=== PATIENT | female | born 1980 | race Caucasian/White ===

== ENCOUNTER 2017-01-16 19:22 | Emergency (ER) | payer OTHER ==
[~2017-01-16] VITALS: Ht 160 cm; Wt 70.3 kg
--- NOTE | 2017-01-16 20:23 | ED GENERAL ADULT ---
History of Present Illness General Chief Complaint: General Adult Stated Complaint: "NECK PAIN, DIZZY, NUMB LEFT SIDE" Source: patient Exam Limitations: no limitations Vital Signs & Intake/Output Vital Signs & Intake/Output Vital Signs Date Time Temp Pulse Resp B/P Pulse O2 O2 Flow FiO2 Ox Delivery Rate 01/161 99.5 90 18 122/70 100 Room Air 01/17 1944 98.1 93 16 138/83 99 Room Air ED Intake and Output 01/17 0000 01/16 1200 Intake Total 0 Output Total Balance 0 Intake, Oral 0 Patient 155 lb Weight Allergies Coded Allergies: No Known Allergies (01/16/17) Triage Note: RECEIVED 36 YO C/O NECK PAIN STARTED LAST SATURDAY. SPOKE TO DR FORTUNE AND PRESCRIBED MEDS. TODAY AT 1840, PT WAS ROTATING NECK AND WHEN SHE ROTATED HEAD TO LEFT SIDE, SHE FELT A POP AND ALMOST PASSED OUT. THEN PT HAD LEFT SIDED NUMMBESS WHICH IS ALMOST RESOLVED AT PRESENT. Triage Nurses Notes Reviewed? yes Onset: Abrupt Duration: day(s): Timing: recent history : No Patient currently breastfeeds: No HPI: 01/16/17 8:20 pm 36-year-old female presents to the emergency department with neck pain and left sided facial numbness. According to the patient she was in her usual state of health until approximately one week ago when after sleeping on the couch she developed right-sided neck pain. She said that the pain is been ongoing over the last week. She called her primary care doctor today Dr. Fortune. He called in a prescription for Flexeril and prednisone for her. She took a Flexeril at approximately 2:30 PM today. Then at approximately 6 PM tonight she was stretching her neck and felt a sudden onset of severe left-sided neck pain. She also had left-sided facial paresthesias and had some blurriness in her left eye. She felt like her left eyelid was heavy. Now she has no neurological symptoms. She also felt like she was going to fall over at the time of the symptoms. The onset of the symptoms were abrupt, the duration has been ongoing for the past week, the severity is significant as her symptoms required her to come to the emergency department for care. She has no significant past medical history. No significant past surgical history. She denies any possibility of . She is on oral contraceptive pills. She has no known drug allergies. She does not smoke. She occasionally drinks. On physical exam she does have some right sided paracervical neck tenderness and some limited range of motion when turning her head to the left. Her neurological exam is completely normal. Although she does have some mild fatiguing horizontal nystagmus. Past History Travel History Traveled to [place] past 21 day No Medical History Any Pertinent Medical History? see below for history Neurological: NONE EENT: NONE Cardiovascular: NONE Respiratory: NONE Gastrointestinal: NONE Hepatic: NONE Renal: NONE Musculoskeletal: NONE Psychiatric: NONE Endocrine: NONE Blood Disorders: NONE Cancer(s): NONE Surgical History Surgical History: unobtainable Psychosocial History What is your primary language Japanese Tobacco Use: Never used Family History Hx Contributory? No Review of Systems Review of Systems Constitutional: Denies: fever. EENTM: Reports: see HPI. Respiratory: Denies: short of breath. Cardiovascular: Denies: chest pain. GI: Denies: abdominal pain. Genitourinary: Reports: no symptoms. Musculoskeletal: Reports: no symptoms. Skin: Reports: no symptoms. Neurological/Psychological: Reports: anxiety. Hematologic/Endocrine: Denies: bruising, bleeding. Physical Exam Physical Exam General Appearance: well developed/nourished, alert, awake, anxious, mild distress Head: atraumatic, normal appearance Eyes: Bilateral: normal appearance, PERRL, EOMI, other (nystagmas). Ears, Nose, Throat: normal pharynx, normal ENT inspection, hearing grossly normal Neck: normal inspection, supple, right paracervical tenderness, decreased rom Respiratory: normal breath sounds, chest non-tender, no respiratory distress Cardiovascular: regular rate/rhythm Peripheral Pulses: 4+ radial (R), 4+ radial (L) Gastrointestinal: soft, non-tender Back: normal range of motion Extremities: normal inspection, normal capillary refill, no edema Neurologic/Psych: no motor/sensory deficits, awake, alert, oriented x 3 Skin: intact, normal color, warm/dry Core Measures ACS in differential dx? No CVA/TIA Diagnosis: No Severe Sepsis Present: No Septic Shock Present: No Progress Differential Diagnoses I considered the following diagnoses in my evaluation of the patient: [Adverse drug reaction to Flexeril, cervical radiculopathy, carotid artery dissection, CVA, TIA, Lyme disease. ] Plan of Care: Orders Procedure Date/time Status TROPONIN LEVEL 01/17 2016 Complete LYME TITRE 01/17 2016 Active HUMAN BETA HCG SCREEN 01/17 2016 Complete COMPREHENSIVE METABOLIC PANEL 01/17 2016 Complete CBC WITHOUT DIFFERENTIAL 01/17 2016 Complete EKG 01/17 2016 Active Laboratory Tests 01/16/172023: Total Beta HCG Cancelled 01/16/172015: Anion Gap 12, Estimated GFR > 60, BUN/Creatinine Ratio 30.0 H, Glucose 105 H, Calcium 9.5, Total Bilirubin 0.4, AST 19, ALT 32, Alkaline Phosphatase 30, Troponin I < 0.01, Total Protein 7.4, Albumin 4.4, Globulin 3.0, Albumin/ Globulin Ratio 1.5, Total Beta HCG NEGATIVE 01/16/171931: CBC w Diff NO MAN DIFF REQ, RBC 4.86, MCV 86.3, MCH 28.9, RDW 13.3, MPV 7.4, Gran % 52.9, Lymphocytes % 32.9, Monocytes % 8.5, Eosinophils % 5.3 H, Basophils % 0.4, Absolute Granulocytes 2.5, Absolute Lymphocytes 1.6, Absolute Monocytes 0.4, Absolute Eosinophils 0.3, Absolute Basophils 0, PUBS MCHC 33.5, Lyme Disease Antibody Pending Initial ED EKG: NSR Departure Departure Disposition: HOME OR SELF CARE Condition: Stable Clinical Impression Primary Impression: Cervical radiculopathy Secondary Impressions: Adverse drug reaction Referrals: ADILIA FORTUNE MD (PCP/Family) Departure Forms: Customer Survey General Discharge Information Comments PATIENT: SONDRA DIETZ PRESENT AGE: 36 PATIENT ACCOUNT NO: [id number] : 82 LOCATION: [facility] ORDERING PHYSICIAN: SIRENA LIMA DO SERVICE DATE: 01/16/17 EXAM TYPE: CAT - CT NECK ANGIOGRAM EXAMINATION: CT ANGIOGRAM NECK CLINICAL INFORMATION: Left-sided facial weakness. Neck pain. Concern for carotid dissection. COMPARISON: None TECHNIQUE: Test bolus sequences followed by administration of 87 mL of Optiray 350 intravenous contrast. Helical imaging was performed in the axial plane of the neck. The data was processed at the imaging technologist workstation for generation of MIP sequences. (There were no Three-dimensional volume rendered reformatted images generated at an offline 3-D workstation.) DLP: 1075.71 mGy-cm FINDINGS: The aortic arch has a classic configuration and the major arch vessel origins are non-stenotic. The vertebral arteries are patent. The right vertebral artery is dominant. No dissection aneurysm or stenosis of the vertebral arteries. Both common carotid arteries are normal in course and caliber. There is no dissection. No aneurysm. No stenosis of either the common carotid or internal carotid arteries. Both internal carotid arteries are normal. Intracranially there is is normal enhancement of the [place]. Normal vascular flow of the anterior, middle and posterior cerebral arteries. Lung apices are clear. No neck lesion or inflammation or bulky adenopathy. Nasopharyngeal air passage are patent. Paranasal sinuses and mastoid air cells are normally aerated. Orbits are unremarkable. No intracranial abnormality. There is degenerative change of the cervical spine with disc height narrowing C5-C6 with posterior spurs at the uncinate process bilaterally encroaching into the neural foramina. IMPRESSION: 1. Normal CT of the arteries of the neck. No dissection. DICTATED BY: YVETTE RIVERA MD DATE/TIME DICTATED:01/16/172207 IMPROVEMENT AUDITOR:YANELY DATE/TIME TRANSCRIBED:01/16/172207 CONFIDENTIAL, DO NOT COPY WITHOUT APPROPRIATE AUTHORIZATION. On reevaluation the patient is asymptomatic. She will stop the Flexeril. Follow-up with her primary care doctor this week. She will follow-up with the neurosurgeon should her neck pain persist for another week. She will take the meloxicam as prescribed Critical Care Note Critical Care Note Critical Care Time: 30-74 min
[2017-01-16 20:49] LABS: ABSOLUTE BASOPHIL COUNT 0 /CUMM (0.0-0.2); ABSOLUTE EOSINOPHIL COUNT 0.3 /CUMM (0.0-0.7); ABSOLUTE GRANULOCYTE CT 2.5 /CUMM (1.4-6.5); ABSOLUTE LYMPH COUNT 1.6 /CUMM (1.2-3.4); ABSOLUTE MONOCYTE COUNT 0.4 /CUMM (0.10-0.60); BASOPHIL % 0.4 % (0.0-2.0); EOSINOPHIL % 5.3 % (0-5); GRANULOCYTE % 52.9 % (42.2-75.2); HEMATOCRIT 41.9 % (37-47); MEAN CORPUSCULAR HGB 28.9 PG (27.0-31.0); MEAN CORPUSCULAR HGB CONC 33.5 G/DL (33.0-37.0); MEAN CORPUSCULAR VOLUME 86.3 FL (81.0-99.0); MEAN PLATELET VOLUME 7.4 FL (7.4-10.4); PLATELET COUNT 269 /CUMM (130-400); RBC DISTRIBUTION WIDTH 13.3 % (11.5-14.5); RED BLOOD CELL CT 4.86 /CUMM (4.20-5.40); WHITE BLOOD CELL COUNT 4.8 /CUMM (4.8-10.8)
[2017-01-16 21:41] VITALS: BP 122/70
--- NOTE | 2017-01-16 21:57 | CT SCAN REPORT ---
EXAMINATION: CT HEAD WITHOUT CONTRAST CLINICAL INFORMATION: Left-sided facial weakness COMPARISON: None TECHNIQUE: Contiguous axial imaging was performed from the skull base to vertex without intravenous administration of contrast. DLP: 601 mGy-cm FINDINGS: No intra-axial or extra-axial hemorrhage. No acute territorial infarct. Ventricles and sulci appear normal. Preservation of simmons-white matter differentiation. No mass, mass effect, or midline shift. No fracture. The mastoid air cells and visualized paranasal sinuses are clear. IMPRESSION: No acute intracranial pathology.
--- NOTE | 2017-01-16 22:23 | CT SCAN REPORT ---
EXAMINATION: CT ANGIOGRAM NECK CLINICAL INFORMATION: Left-sided facial weakness. Neck pain. Concern for carotid dissection. COMPARISON: None TECHNIQUE: Test bolus sequences followed by administration of 87 mL of Optiray 350 intravenous contrast. Helical imaging was performed in the axial plane of the neck. The data was processed at the 3d technologist workstation for generation of MIP sequences. (There were no Three-dimensional volume rendered reformatted images generated at an offline 3-D workstation.) DLP: 1075.71 mGy-cm FINDINGS: The aortic arch has a classic configuration and the major arch vessel origins are non-stenotic. The vertebral arteries are patent. The right vertebral artery is dominant. No dissection aneurysm or stenosis of the vertebral arteries. Both common carotid arteries are normal in course and caliber. There is no dissection. No aneurysm. No stenosis of either the common carotid or internal carotid arteries. Both internal carotid arteries are normal. Intracranially there is is normal enhancement of the [place]. Normal vascular flow of the anterior, middle and posterior cerebral arteries. Lung apices are clear. No neck lesion or inflammation or bulky adenopathy. Nasopharyngeal air passage are patent. Paranasal sinuses and mastoid air cells are normally aerated. Orbits are unremarkable. No intracranial abnormality. There is degenerative change of the cervical spine with disc height narrowing C5-C6 with posterior spurs at the uncinate process bilaterally encroaching into the neural foramina. IMPRESSION: 1. Normal CT of the arteries of the neck. No dissection.
== END 2017-01-16 22:52 ==
LOC: ERH 19:22
PROVIDERS: Emergency Medicine
DX: M54.12 Radiculopathy, cervical region (principal); T48.205A Adverse effect of unspecified drugs acting on muscles, initial encounter; R42 Dizziness and giddiness; R20.0 Anesthesia of skin
CPT/HCPCS: 86618; 93005; 93010